=== PATIENT | female | born 1955 | race Caucasian/White ===

== ENCOUNTER 2016-07-03 15:45 | Inpatient (IN) | END 2016-07-11 18:55 | disposition home health service (06) | DRG 871 | DX: A41.9 Sepsis, unspecified organism (principal); J69.0 Pneumonitis due to inhalation of food and vomit; N17.0 Acute kidney failure with tubular necrosis; J90 Pleural effusion, not elsewhere classified; D68.4 Acquired coagulation factor deficiency; D68.9 Coagulation defect, unspecified; N39.0 Urinary tract infection, site not specified; L03.116 Cellulitis of left lower limb; L03.115 Cellulitis of right lower limb; D53.1 Other megaloblastic anemias, not elsewhere classified; L60.2 Onychogryphosis; N18.9 Chronic kidney disease, unspecified; R31.9 Hematuria, unspecified; F10.10 Alcohol abuse, uncomplicated; E11.22 Type 2 diabetes mellitus with diabetic chronic kidney disease; E11.628 Type 2 diabetes mellitus with other skin complications; E66.9 Obesity, unspecified; I49.9 Cardiac arrhythmia, unspecified; I12.9 Hypertensive chronic kidney disease with stage 1 through stage 4 chronic kidney disease, or unspecified chronic kidney disease; B96.20 Unspecified Escherichia coli [E. coli] as the cause of diseases classified elsewhere; B35.1 Tinea unguium; M71.22 Synovial cyst of popliteal space [Baker], left knee; M71.21 Synovial cyst of popliteal space [Baker], right knee; R09.02 Hypoxemia; K70.31 Alcoholic cirrhosis of liver with ascites; K29.70 Gastritis, unspecified, without bleeding; K20.8 Other esophagitis; K44.9 Diaphragmatic hernia without obstruction or gangrene; K29.80 Duodenitis without bleeding; R23.3 Spontaneous ecchymoses; Z88.0 Allergy status to penicillin; Z88.6 Allergy status to analgesic agent; Z88.8 Allergy status to other drugs, medicaments and biological substances; Z66 Do not resuscitate ==